=== PATIENT | male | born 1950 | race Asian ===

== ENCOUNTER 2019-03-14 14:29 | Emergency (ER) | payer BC ==
[~2019-03-14] VITALS: Ht 175.3 cm; Wt 78.0 kg
[2019-03-14] MEDS ORDERED: NAPROSYN500 MG PO (14:55)
[2019-03-14] MEDS ORDERED: AUGMENTIN 875-1 EACH PO (14:55)
[2019-03-14] MEDS ORDERED: LOSARTAN POTASS25 MG (15:04)
[2019-03-14] MEDS ORDERED: ASPIRIN EC81 MG PO (15:04)
[2019-03-14] MEDS ORDERED: LIPITOR40 MG (15:04)
[2019-03-14 15:17] VITALS: BP 145/81
== END 2019-03-14 15:12 | disposition home or self-care (01) ==
LOC: FSED 14:29
DX: H65.01 Acute serous otitis media, right ear (principal)
CPT/HCPCS: 99282

== ENCOUNTER 2019-03-17 02:03 | Emergency (ER) | payer BC ==
[~2019-03-17] VITALS: Ht 175.3 cm; Wt 78.0 kg
[~2019-03-17 02:03] MED LIST: ASPIRIN EC81 MG PO; AUGMENTIN 875-1 EACH PO; LIPITOR40 MG; LOSARTAN POTASS25 MG; NAPROSYN500 MG PO
[2019-03-17] MEDS ORDERED: DIATRIZOATE MEGL/DIATRIZOA SOD 30 ML BTL PO ONE (03:17)
--- NOTE | 2019-03-17 05:35 | Diagnostic Imaging Report ---
EXAM: CT Abdomen and Pelvis WITHOUT contrast INDICATION: Constipation COMPARISON: None. TECHNIQUE: Abdomen and pelvis were scanned utilizing a multidetector helical scanner from the lung base to the pubic symphysis without administration of IV contrast. Absence of intravenous contrast decreases sensitivity for detection of focal lesions and vascular pathology. Coronal and sagittal reformations were obtained. Routine protocol was performed. IV CONTRAST: None ORAL CONTRAST: Gastroview COMPLICATIONS: None RADIATION DOSE: Total DLP: 643 mGy*cm Estimated effective dose: (DLP x 0.015 x size factor) mSv CTDIvol has been reviewed. It is below the limits set by the Radiation Protocol Committee (RPC). Dose modulation, iterative reconstruction, and/or weight based adjustment of the mA/kV was utilized to reduce the radiation dose to as low as reasonably achievable. FINDINGS: LINES and TUBES: None. LOWER THORAX: Unremarkable HEPATOBILIARY: No focal hepatic lesions. No biliary ductal dilation. GALLBLADDER: No radio-opaque stones or sludge. No wall thickening. SPLEEN: No splenomegaly. PANCREAS: No focal masses or ductal dilatation. ADRENALS: No adrenal nodules KIDNEYS/URETERS: No hydronephrosis. No cystic or solid mass lesions. No stones. GI TRACT: No abnormal distention, wall thickening, or evidence of bowel obstruction. There are diverticula within the colon without evidence of diverticulitis. Appendix is normal. PELVIC ORGANS/BLADDER: Unremarkable. LYMPH NODES: No lymphadenopathy. VESSELS: There is mild atherosclerotic disease in the aorta and major arterial branches. PERITONEUM / RETROPERITONEUM: No free air or fluid. BONES: There are degenerative changes in the lumbar spine. SOFT TISSUES: There are fat containing inguinal hernias. IMPRESSION: Moderate colonic stool burden, consistent with constipation. Colonic diverticulosis without evidence of diverticulitis. Signed by: Zach Coffey DO on 03/17/2019 5:31 AM
== END 2019-03-17 06:00 | disposition home or self-care (01) ==
LOC: FSED 02:03
DX: K62.89 Other specified diseases of anus and rectum (principal); K59.00 Constipation, unspecified; K57.31 Diverticulosis of large intestine without perforation or abscess with bleeding
CPT/HCPCS: 74176; 99283